=== PATIENT | female | born 1960 | race Caucasian/White ===

== ENCOUNTER → 2017-12-19 | Outpatient (CLI) | payer OTHER ==
[~2017-12-19] MED LIST: CENTRUM1 TAB PO; ESTRACE; FERROUS SU325 MG/TAB PO; PROVERA 10MG10 MG PO
== END ==
LOC: COL.RAD 09:23
DX: R20.2 Paresthesia of skin (principal); R53.1 Weakness
CPT/HCPCS: A9585